=== PATIENT | female | born 1940 | race Caucasian/White ===

== ENCOUNTER 2016-09-14 09:01 | Emergency (ER) | payer MEDICARE, BC ==
[~2016-09-14] VITALS: Ht 154.9 cm; Wt 64.5 kg
[~2016-09-14 09:01] MED LIST: CARD240C6 PO; ECOT81TA2 PO; LORA0.5T PO; OMEP20CA5 PO; POTA595T5 PO; PROP10TA26 PO; TAB-TAB PO; VITA-13 PO; VITACAP9 PO
[2016-09-14 09:03] VITALS: BP 166/72; PULSE 85; RESP 16; TEMP 97.8; O2SAT 96
[2016-09-14 09:20] VITALS: BP 187/78; PULSE 76; RESP 16; TEMP 98.3; O2SAT 98
--- NOTE | 2016-09-14 09:43 | PD ---
HPI Chief Complaint: Chest Pain Time Seen by Provider: 09:28 Travel History International Travel<30 days: No Contact w/Intl Traveler<30days: No Traveled to known affect area: No History of Present Illness HPI 76-year-old female with history of CAD, cardiac stent, here for evaluation of chest tightness and left arm discomfort. Symptoms have been occurring intermittently for the last week, no modifying factors, no dyspnea. She denies fevers or recent illness. No paresthesias or motor deficits. She last had the pain this morning while at rest. She took a baby aspirin this morning. Her poiser is Dr. Allen. [facility] Past Medical History Hx Anticoagulant Therapy: Yes (81 MG ASA ) Blood Disorders: No Anxiety: No Depression: No Heart Rhythm Problems: Yes (MVP) Cancer: Yes (right breast) Cardiac Catheterization: Yes (10/2009) Cardiovascular Problems: Yes Chest Pain: Yes Congestive Heart Failure: No Cerebrovascular Accident: Yes Diabetes: Yes (DIET CONTROLLED) Patient Takes Glucophage: No Diminished Hearing: No Endocrine: No Gastrointestinal Disorders: Yes GERD: Yes Genitourinary: Yes Headaches: Yes Hypertension: Yes Immune Disorder: No Musculoskeletal: Yes Neurologic: Yes Psychiatric: No Reproductive: No Respiratory: Yes (COPD ) Migraines: No Myocardial Infarction: Yes (2009) Radiation Therapy: Yes Seizures: No Tetanus Vaccination: > 5 Years Influenza Vaccination: No PNEUMOCCOCAL Vaccine (Year): 2004 Past Surgical History Abdominal Surgery: Yes (APPY) Appendectomy: Yes Cardiac Surgery: No Cholecystectomy: Yes Coronary Stent: Yes (x1) Ear Surgery: No Endocrine Surgery: Yes (GALLBLADDER) Eye Surgery: Yes Genitourinary Surgery: No Gynecologic Surgery: Yes (HYSTERECTOMY) Hysterectomy: Yes Oral Surgery: Yes (TONSIL) Thoracic Surgery: No Tonsillectomy: Yes Other Surgery: Yes (right lumpectomy) Social History Alcohol Use: Yes (Rarely) Tobacco Use: No Substance Use: No Allergies-Medications (Allergen,Severity, Reaction): Coded Allergies: Cipro (Verified Allergy, Severe, HIVES, 09/14/16) Niacin (Verified Allergy, Severe, 09/14/16) Reported Meds & Prescriptions Reported Meds & Active Scripts Active Reported Multi Vitamin (Multiple Vitamin) 1 Tab Tab 1 Tab PO DAILY Lorazepam 0.5 Mg Tab 0.5 Mg PO Q6-8HR PRN Propranolol (Propranolol HCl) 10 Mg Tab 5 Mg PO DAILY Cardizem CD 24 HR (Diltiazem CD 24 HR) 240 Mg Caper 240 Mg PO DAILY Vitamin D-3 (Cholecalciferol) 1,000 Unit Tab 1,000 Units PO DAILY Aspir-81 (Aspirin) 81 Mg Tabdr 81 Mg PO DAILY Potassium Gluconate 595 Mg Tab 595 Mg PO DAILY Stress B-Complex/Vitamin (B-Complex W/ C & E + Zn) 1 Tab 1 Tab PO DAILY Align (Lactobacillus Rhamnosus (GG)) 4 Mg Cap 4 Mg PO DAILY Review of Systems Except as stated in HPI: all other systems reviewed are Neg Physical Exam Narrative GENERAL: Well-developed, well-nourished, comfortable, no acute distress. SKIN: Warm and dry. No rash. HEAD: Atraumatic. Normocephalic. EYES: Pupils equal and round. No scleral icterus. No injection or drainage. ENT: Mucous membranes pink and moist. NECK: Trachea midline. No JVD. CARDIOVASCULAR: Regular rate and rhythm. Distal pulses brisk and equal bilaterally. RESPIRATORY: No accessory muscle use. Clear to auscultation. Breath sounds equal bilaterally. GASTROINTESTINAL: Abdomen soft, non-tender, nondistended. MUSCULOSKELETAL: No obvious deformities. No clubbing. No cyanosis. No edema. NEUROLOGICAL: Awake and alert. No obvious cranial nerve deficits. Motor grossly within normal limits. Normal speech. PSYCHIATRIC: Appropriate mood and affect; insight and judgment normal. Data Data Last Documented VS Vital Signs Date Time Temp Pulse Resp B/P Pulse Ox O2 Delivery O2 Flow Rate FiO2 09/14/16 09:20 98.3 76 16 187/78 98 09/14/16 09:20 Room Air Orders Electrocardiogram (09/14/16 ) Basic Metabolic Panel (Bmp) (09/14/16 09:39) Ckmb (Isoenzyme) Profile (09/14/16 09:39) Complete Blood Count With Diff (09/14/16 09:39) Magnesium (Mg) (09/14/16 09:39) Prothrombin Time / Inr (Pt) (09/14/16 09:39) Act Partial Throm Time (Ptt) (09/14/16 09:39) Troponin I (09/14/16 09:39) Chest, Single Ap (09/14/16 09:39) Ecg Monitoring (09/14/16 09:39) Iv Access Insert/Monitor (09/14/16 09:39) Oximetry (09/14/16 09:39) Aspirin Chew (Aspirin Chew) (09/14/16 09:45) Sodium Chloride 0.9% Flush (Ns Flush) (09/14/16 09:45) Potassium Chloride (Kcl) (09/14/16 11:00) Labs Laboratory Tests Test 09/14/16 09:50 White Blood Count 6.6 TH/MM3 Red Blood Count 4.30 MIL/MM3 Hemoglobin 13.3 GM/DL Hematocrit 38.9 % Mean Corpuscular Volume 90.6 FL Mean Corpuscular Hemoglobin 31.0 PG Mean Corpuscular Hemoglobin 34.3 % Concent Red Cell Distribution Width 13.2 % Platelet Count 243 TH/MM3 Mean Platelet Volume 7.7 FL Neutrophils (%) (Auto) 58.6 % Lymphocytes (%) (Auto) 35.2 % Monocytes (%) (Auto) 5.5 % Eosinophils (%) (Auto) 0.4 % Basophils (%) (Auto) 0.3 % Neutrophils # (Auto) 3.9 TH/MM3 Lymphocytes # (Auto) 2.3 TH/MM3 Monocytes # (Auto) 0.4 TH/MM3 Eosinophils # (Auto) 0.0 TH/MM3 Basophils # (Auto) 0.0 TH/MM3 CBC Comment DIFF FINAL Differential Comment Prothrombin Time 11.1 SEC Prothromb Time International 1.0 RATIO Ratio Activated Partial 27.1 SEC Thromboplast Time Sodium Level 139 MEQ/L Potassium Level 3.3 MEQ/L Chloride Level 101 MEQ/L Carbon Dioxide Level 30.3 MEQ/L Anion Gap 8 MEQ/L Blood Urea Nitrogen 6 MG/DL Creatinine 0.51 MG/DL Estimat Glomerular Filtration 117 ML/MIN Rate Random Glucose 154 MG/DL Calcium Level 8.8 MG/DL Magnesium Level 2.0 MG/DL Total Creatine Kinase 75 U/L Troponin I LESS THAN 0.02 NG/ML MDM Medical Decision Making Medical Screen Exam Complete: Yes Emergency Medical Condition: Yes Medical Record Reviewed: Yes Interpretation(s) EKG: Sinus, rate 74, normal axis, normal intervals, no acute ischemic abnormality. Differential Diagnosis ACS, pneumothorax, pericarditis, PE, pneumonia, musculoskeletal pain. Narrative Course Vital signs show heart rate 85, blood pressure 166/72, pulse ox 96% on room air , oral temp of 97.8F. CBC is unremarkable. BMP is remarkable for potassium 3.3 which was replaced orally, otherwise unremarkable. Cardiac enzymes are negative. Chest x-ray is unchanged from prior. Case discussed with the patient's poiser Dr. Allen who reports that the patient had a normal nuclear stress test in August 2016 which was last month. He is not believe that this pain is cardiac in nature as she has had this pain for quite some time now. States that the patient can be discharged home with outpatient follow-up in his office next week. Patient was made aware of all findings and of plan. She was informed on when to return to the emergency department. She verbalizes understanding and agreement with plan. Diagnosis Primary Impression: Atypical chest pain Referrals: Christiano Allen MD 3 days Additional Instructions: Follow-up with your poiser Dr. Allen this week. Return to the emergency department for worsening symptoms or any other concerns. Disposition: 01 DISCHARGE HOME Condition: Stable Seferino Hayward MD Sep 14, 2016 09:43
[2016-09-14] MEDS ORDERED: SODIUM CHLORIDE 0.9% FLUSH 5 ML FLUSH IVF PRN (09:45)
[2016-09-14] MEDS ORDERED: ASPIRIN 81 MG CHEW TAB PO ONE (09:45)
[2016-09-14] MEDS ORDERED: ASPI81TA81 PO (10:01)
[2016-09-14] MEDS ORDERED: PROP10TA6 PO (10:01)
[2016-09-14] MEDS ORDERED: CARD240C6 PO (10:01)
[2016-09-14] MEDS ORDERED: ALIG4CAP PO (10:01)
[2016-09-14] MEDS ORDERED: VITA10003 PO (10:01)
[2016-09-14] MEDS ORDERED: LORA-373 PO (10:01)
[2016-09-14] MEDS ORDERED: POTA595T PO (10:01)
[2016-09-14] MEDS ORDERED: STRETAB11 PO (10:01)
[2016-09-14] MEDS ORDERED: MULT-135 PO (10:02)
[2016-09-14 10:18] LABS: AUTOMATED NEUTROPHIL # 3.9 TH/MM3 (1.8-7.7); BASOPHIL % 0.3 % (0.0-2.0); EOSINOPHIL % 0.4 % (0.0-4.0); HEMATOCRIT 38.9 % (35.0-46.0); HEMO FLAGS DIFF FINAL; LYMPH % 35.2 % (9.0-44.0); LYMPHOCYTE # 2.3 TH/MM3 (1.0-4.8); MEAN CELL VOLUME 90.6 FL (80.0-100.0); MEAN CORPUSCULAR HGB CONC 34.3 % (32.0-36.0); MONO % 5.5 % (0.0-8.0); NEUT % 58.6 % (16.0-70.0); PLATELET COUNT 243 TH/MM3 (150-450); RED CELL DISTRIBUTION WIDTH 13.2 % (11.6-17.2); WHITE BLOOD COUNT 6.6 TH/MM3 (4.0-11.0)
[2016-09-14 10:31] LABS: APTT (PATIENT) 27.1 SEC (24.3-30.1); PROTHROMBIN TIME - PATIENT 11.1 SEC (9.8-11.6)
[2016-09-14 10:40] LABS: ANION GAP 8 MEQ/L (5-15); BICARBONATE 30.3 MEQ/L (21.0-32.0); BLOOD UREA NITROGEN 6 MG/DL (7-18); CHLORIDE 101 MEQ/L (98-107); GLOMERULAR FILTRATION RATE 117 ML/MIN (>89); POTASSIUM 3.3 MEQ/L (3.5-5.1); SODIUM (NA) 139 MEQ/L (136-145)
--- NOTE | 2016-09-14 10:45 | RADRPT ---
EXAM DATE/TIME: 09/14/2016 10:02 [facility] COMPARISON: CHEST SINGLE AP, October 24, 2013, 14:08. INDICATIONS: Chest tightness and pain. MEDICAL HISTORY: Myocardial infarction. SURGICAL HISTORY: Stent. ENCOUNTER: Initial ACUITY: 4 - 6 days PAIN SCORE: 4/10 LOCATION: Left chest radiating down right arm. FINDINGS: The heart is stable. The pulmonary vascular pattern is normal. The lungs are unchanged. There is n o acute focal pulmonary infiltrate. Degenerative changes are noted throughout the thoracic spine. S urgical clips are noted within the right axilla. CONCLUSION: 1. No significant change compared to 10/24/13. Misael Gamble MD on September 14, 2016 at 10:40 Board Certified Radiologist. This report was verified electronically.
[2016-09-14 10:46] LABS: CREATINE KINASE 75 U/L (26-192)
[2016-09-14 11:00] VITALS: BP 175/77; PULSE 79; RESP 16; O2SAT 88
[2016-09-14] MEDS ORDERED: POTASSIUM CHLORIDE 20 MEQ CONTROLLED RELEASE TAB PO ONE (11:00)
[2016-09-14] MEDS ORDERED: POTASSIUM CL 40 MEQ/30 ML LIQ UDC PO ONE (12:15)
--- NOTE | 2016-09-14 18:53 | EKG ---
Date Performed: 09/14/2016 Time Performed: 09:24:30 PTAGE: 76 years EKG: Sinus rhythm NORMAL ECG PREVIOUS TRACING : 10/24/2013 13.59 Since previous tracing, no significant change noted DOCTOR: Becky Page Interpretating Date/Time 09/14/2016 18:51:30
== END 2016-09-14 12:49 | disposition home or self-care (01) ==
LOC: NEPC 09:01
DX: R07.89 Other chest pain (principal); I10 Essential (primary) hypertension; I25.10 Atherosclerotic heart disease of native coronary artery without angina pectoris; I25.2 Old myocardial infarction; E11.9 Type 2 diabetes mellitus without complications; K21.9 Gastro-esophageal reflux disease without esophagitis; J44.9 Chronic obstructive pulmonary disease, unspecified; Z95.5 Presence of coronary angioplasty implant and graft; Z79.82 Long term (current) use of aspirin; Z79.899 Other long term (current) drug therapy
CPT/HCPCS: 71010; 80048; 82550; 83735; 84484; 85025; 85610; 85730; 93005

== ENCOUNTER 2016-12-15 11:59 | Emergency (ER) | payer MEDICARE, BC ==
[~2016-12-15] VITALS: Ht 152.4 cm; Wt 64.0 kg
[~2016-12-15 11:59] MED LIST changes: +ALIG4CAP PO; +ASPI81TA81 PO; -ECOT81TA2 PO; +LORA-373 PO; -LORA0.5T PO; +MULT-135 PO; -OMEP20CA5 PO; +POTA595T PO; -POTA595T5 PO; -PROP10TA26 PO; +PROP10TA6 PO; +STRETAB11 PO; -TAB-TAB PO; -VITA-13 PO; +VITA10003 PO; -VITACAP9 PO
[2016-12-15 12:10] VITALS: BP 178/80; PULSE 73; RESP 14; RESP 16; O2SAT 98
[2016-12-15] MEDS ORDERED: SODIUM CHLORIDE 0.9% FLUSH 10 ML FLUSH IVF PRN (12:15)
[2016-12-15] MEDS ORDERED: ASPIRIN 81 MG CHEW TAB PO ONE (12:15)
--- NOTE | 2016-12-15 12:23 | PD ---
HPI Chief Complaint: Chest Pain Time Seen by Provider: 12:14 Travel History International Travel<30 days: No Contact w/Intl Traveler<30days: No Traveled to known affect area: No History of Present Illness HPI 76 year old female presents to the emergency department for evaluation of chest pain that started around 2am this morning. She states she started with left arm discomfort that moved into her chest. She states she has been having intermittent chest pain since yesterday. She states she fell back asleep after she woke up with it at 2am and then had it again when she woke up at 8am. She is unsure how long it lasted, but is gong now. She states it also occurred approximately 2-3x yesterday. She denies any headache, shortness of breath, fevers. She states she is nauseated, but no vomiting. No diaphoresis. She reports history of CAD and stent placement in 2009. Her paper counter is Dr. Allen. She states she has not had a recent stress test, but according to her visit here in September 2016, she had a normal nuclear stress test in 08/2016. She took 1 baby ASA this morning. She also takes diltiazem, propranolol. No tobacco use. No recent surgery/travel. No hemoptysis. No history of DVT/PE. PFSH Past Medical History Hx Anticoagulant Therapy: Yes (81 MG ASA ) Blood Disorders: No Anxiety: No Depression: No Heart Rhythm Problems: Yes (MVP) Cancer: Yes (right breast) Cardiac Catheterization: Yes (10/2009) Cardiovascular Problems: Yes Chest Pain: Yes Congestive Heart Failure: No Cerebrovascular Accident: Yes Diabetes: Yes (DIET CONTROLLED) Patient Takes Glucophage: No Diminished Hearing: No Endocrine: No Gastrointestinal Disorders: Yes GERD: Yes Genitourinary: Yes Headaches: Yes Hypertension: Yes Immune Disorder: No Musculoskeletal: Yes Neurologic: Yes Psychiatric: No Reproductive: No Respiratory: Yes Migraines: No Myocardial Infarction: Yes (2009) Radiation Therapy: Yes Seizures: No Tetanus Vaccination: Unknown Influenza Vaccination: No PNEUMOCCOCAL Vaccine (Year): 2004 Past Surgical History Abdominal Surgery: Yes (APPY) Appendectomy: Yes Cardiac Surgery: No Cholecystectomy: Yes Coronary Stent: Yes (x1) Ear Surgery: No Endocrine Surgery: Yes (GALLBLADDER) Eye Surgery: Yes Genitourinary Surgery: No Gynecologic Surgery: Yes Hysterectomy: Yes Oral Surgery: Yes Thoracic Surgery: No Tonsillectomy: Yes Other Surgery: Yes (right lumpectomy) Social History Alcohol Use: Yes (Rarely) Tobacco Use: No Substance Use: No Allergies-Medications (Allergen,Severity, Reaction): Coded Allergies: Cipro (Verified Allergy, Severe, HIVES, 09/14/16) Niacin (Verified Allergy, Severe, 09/14/16) Reported Meds & Prescriptions Reported Meds & Active Scripts Active Reported Multi Vitamin (Multiple Vitamin) 1 Tab Tab 1 Tab PO DAILY Lorazepam 0.5 Mg Tab 0.5 Mg PO Q6-8HR PRN Propranolol (Propranolol HCl) 10 Mg Tab 5 Mg PO DAILY Cardizem CD 24 HR (Diltiazem CD 24 HR) 240 Mg Caper 240 Mg PO DAILY Vitamin D-3 (Cholecalciferol) 1,000 Unit Tab 1,000 Units PO DAILY Aspir-81 (Aspirin) 81 Mg Tabdr 81 Mg PO DAILY Potassium Gluconate 595 Mg Tab 595 Mg PO DAILY Stress B-Complex/Vitamin (B-Complex W/ C & E + Zn) 1 Tab 1 Tab PO DAILY Review of Systems Except as stated in HPI: all other systems reviewed are Neg Physical Exam Narrative GENERAL: Well-nourished, well-developed female patient, ambulatory and in no acute distress. Afebrile. SKIN: Focused skin assessment warm/dry. HEAD: Normocephalic. Atraumatic. EYES: No scleral icterus. No injection or drainage. NECK: Supple, trachea midline. No JVD or lymphadenopathy. CARDIOVASCULAR: Regular rate and rhythm without murmurs, gallops, or rubs. Bilateral radial and pedal pulses 2+. RESPIRATORY: Breath sounds equal bilaterally. No accessory muscle use. Lung sounds are clear to auscultation. GASTROINTESTINAL: Abdomen soft, non-tender, nondistended. MUSCULOSKELETAL: No cyanosis, or edema. BACK: Nontender without obvious deformity. No CVA tenderness. Data Data Last Documented VS Vital Signs Date Time Temp Pulse Resp B/P Pulse Ox O2 Delivery O2 Flow Rate FiO2 12/15/16 12:12 78 18 100 Nasal Cannula 2 12/15/16 12:10 178/80 Orders Electrocardiogram (12/15/16 ) Basic Metabolic Panel (Bmp) (12/15/16 12:14) Ckmb (Isoenzyme) Profile (12/15/16 12:14) Complete Blood Count With Diff (12/15/16 12:14) Magnesium (Mg) (12/15/16 12:14) Troponin I (12/15/16 12:14) Chest, Single Ap (12/15/16 12:14) Ecg Monitoring (12/15/16 12:14) Bilateral Bp Monitoring (12/15/16 12:14) Iv Access Insert/Monitor (12/15/16 12:14) Oximetry (12/15/16 12:14) Oxygen Administration (12/15/16 12:14) Aspirin Chew (Aspirin Chew) (12/15/16 12:15) Sodium Chloride 0.9% Flush (Ns Flush) (12/15/16 12:15) Labs Laboratory Tests Test 12/15/16 12:20 White Blood Count 6.6 TH/MM3 Red Blood Count 4.45 MIL/MM3 Hemoglobin 13.8 GM/DL Hematocrit 39.6 % Mean Corpuscular Volume 88.8 FL Mean Corpuscular Hemoglobin 30.9 PG Mean Corpuscular Hemoglobin 34.8 % Concent Red Cell Distribution Width 12.7 % Platelet Count 239 TH/MM3 Mean Platelet Volume 7.8 FL Neutrophils (%) (Auto) 55.8 % Lymphocytes (%) (Auto) 37.6 % Monocytes (%) (Auto) 5.3 % Eosinophils (%) (Auto) 0.7 % Basophils (%) (Auto) 0.6 % Neutrophils # (Auto) 3.7 TH/MM3 Lymphocytes # (Auto) 2.5 TH/MM3 Monocytes # (Auto) 0.3 TH/MM3 Eosinophils # (Auto) 0.0 TH/MM3 Basophils # (Auto) 0.0 TH/MM3 CBC Comment DIFF FINAL Differential Comment Sodium Level 141 MEQ/L Potassium Level 3.7 MEQ/L Chloride Level 104 MEQ/L Carbon Dioxide Level 29.5 MEQ/L Anion Gap 8 MEQ/L Blood Urea Nitrogen 5 MG/DL Creatinine 0.52 MG/DL Estimat Glomerular Filtration 114 ML/MIN Rate Random Glucose 129 MG/DL Calcium Level 8.6 MG/DL Magnesium Level 2.1 MG/DL Total Creatine Kinase 85 U/L Troponin I LESS THAN 0.02 NG/ML MDM Medical Decision Making Medical Screen Exam Complete: Yes Emergency Medical Condition: Yes Medical Record Reviewed: Yes Interpretation(s) Chest x-ray - CONCLUSION: No acute cardiopulmonary disease. Differential Diagnosis ACS vs. angina vs. anxiety vs. chest wall pain vs. pneumonia vs. pneumothorax vs. electrolyte abnormality Narrative Course 76 year old female presents to the emergency department for evaluation of left arm discomfort/ left chest pain that has been intermittent since yesterday. She has no pain at this time. EKG shows SR. HR 75, no acute ST changes. CBC, BMP, Magnesium, CK, Troponin, Chest x-ray are ordered and pending. CBC is unremarkable. BMP shows no acute abnormality. CK is 85. Troponin is less than 0.02. Magnesium is 2.1. Chest x-ray shows no acute cardiopulmonary disease. Patient states she does remember having a normal nuclear stress test in August by Dr. Aleln. Patient's paper counter, Dr. Allen, is paged. I spoke with Dr. Alba who is instructional media services technician for Dr. Allen. She would like patient to follow up with Dr. Allen in his office. The patient also states she would like to go home. She is encouraged to return for any worsening symptoms. She verbalizes understanding. My attending physician, Dr. Short, is aware of physical exam findings, laboratory findings, and imaging findings. He agrees on plan and disposition. The patient was discharged in stable condition with instructions, including return instructions and follow up instructions. Diagnosis Primary Impression: Atypical chest pain Referrals: Christiano Allen MD call for appointment Patient Instructions: Chest Pain (ED), General Instructions Additional Instructions: Follow-up with Dr. Allen. Return for any acute, worsening of symptoms. Med/Other Pt SpecificInfo: No Change to Meds Disposition: 01 DISCHARGE HOME Condition: Stable Hafsa Sarabia Dec 15, 2016 12:23
[2016-12-15 12:42] LABS: AUTOMATED NEUTROPHIL # 3.7 TH/MM3 (1.8-7.7); BASOPHIL % 0.6 % (0.0-2.0); EOSINOPHIL % 0.7 % (0.0-4.0); HEMATOCRIT 39.6 % (35.0-46.0); HEMO FLAGS DIFF FINAL; LYMPH % 37.6 % (9.0-44.0); LYMPHOCYTE # 2.5 TH/MM3 (1.0-4.8); MEAN CELL VOLUME 88.8 FL (80.0-100.0); MEAN CORPUSCULAR HEMOGLOBIN 30.9 PG (27.0-34.0); MEAN CORPUSCULAR HGB CONC 34.8 % (32.0-36.0); MONO % 5.3 % (0.0-8.0); NEUT % 55.8 % (16.0-70.0); PLATELET COUNT 239 TH/MM3 (150-450); RED BLOOD COUNT 4.45 MIL/MM3 (4.00-5.30); RED CELL DISTRIBUTION WIDTH 12.7 % (11.6-17.2); WHITE BLOOD COUNT 6.6 TH/MM3 (4.0-11.0)
[2016-12-15 13:04] LABS: ANION GAP 8 MEQ/L (5-15); BICARBONATE 29.5 MEQ/L (21.0-32.0); BLOOD UREA NITROGEN 5 MG/DL (7-18); CHLORIDE 104 MEQ/L (98-107); GLOMERULAR FILTRATION RATE 114 ML/MIN (>89); MAGNESIUM 2.1 MG/DL (1.5-2.5); POTASSIUM 3.7 MEQ/L (3.5-5.1); SODIUM (NA) 141 MEQ/L (136-145)
[2016-12-15 13:11] LABS: CREATINE KINASE 85 U/L (26-192)
--- NOTE | 2016-12-15 13:17 | RADRPT ---
EXAM DATE/TIME: 12/15/2016 12:52 [facility] COMPARISON: CHEST SINGLE AP, September 14, 2016, 10:02. INDICATIONS : Shortness of breath. MEDICAL HISTORY : Hypertension. Carcinoma, breast. SURGICAL HISTORY : Right lumpectomy. ENCOUNTER: Initial ACUITY: 1 day PAIN SCORE: 0/10 LOCATION: Bilateral chest FINDINGS: The lungs are clear without infiltrate, nodule, or mass. There is no appreciable pleural effusion fo r technique. Heart and mediastinum are unremarkable. There are atherosclerotic calcifications of the aorta due to chronic atherosclerotic disease. CONCLUSION: No acute cardiopulmonary disease. Mike Urbano MD on December 15, 2016 at 13:15 Board Certified Radiologist. This report was verified electronically.
--- NOTE | 2016-12-16 13:45 | EKG ---
Date Performed: 12/15/2016 Time Performed: 12:10:42 PTAGE: 76 years EKG: Sinus rhythm WITH FIRST DEGREE AV BLOCK MINIMAL ST DEPRESSION Compared to previous tracing, TX interval slightly longer, otherwise, no significant change. ABNORMAL ECG PREVIOUS TRACING : 09/14/2016 09.24 DOCTOR: Franco Geller Interpretating Date/Time 12/16/2016 13:44:03
== END 2016-12-15 14:18 | disposition home or self-care (01) ==
LOC: NEPC 11:59
DX: R07.89 Other chest pain (principal); M79.602 Pain in left arm; R11.0 Nausea; I44.0 Atrioventricular block, first degree; I25.2 Old myocardial infarction; I25.10 Atherosclerotic heart disease of native coronary artery without angina pectoris; E11.9 Type 2 diabetes mellitus without complications; K21.9 Gastro-esophageal reflux disease without esophagitis; I10 Essential (primary) hypertension; Z86.73 Personal history of transient ischemic attack (TIA), and cerebral infarction without residual deficits; Z95.5 Presence of coronary angioplasty implant and graft; Z79.82 Long term (current) use of aspirin
CPT/HCPCS: 71010; 80048; 82550; 83735; 84484; 85025; 93005